=== PATIENT | male | born 1995 | race Caucasian/White ===

== ENCOUNTER 2017-06-28 08:50 | Emergency (ER) | payer SELFPAY ==
[~2017-06-28] VITALS: Ht 175.3 cm; Wt 81.6 kg
[~2017-06-28 08:50] MED LIST: FAMO20TA5 PO; FLUT16SP22 IH; NAPR-243 PO; PRD20T PO; SMTR50T PO; TOPI100T2 PO; TPR25T PO
--- OUTSIDE RECORDS SUMMARY | 2017-06-28 08:58 | XMS REPORT | Continuity of Care Document ---
Author Author [facility] Organization [facility] Address Unknown Phone Unavailable Allergies Active Description Code Type Severity Reaction Onset Reported/Identified Relationship to Patient Clinical Status Yes cefaclor [id number] Drug Allergy Mild N/A 02/28/2014 Yes cefprozil [id number] Drug Allergy Mild N/A 02/28/2014 Medications Problems Procedures Results Encounters ACCT No. Visit Date/Time Discharge Status Pt. Type Provider Facility Loc./Unit Complaint [id number] 04/09/2015 16:02:00 2014 23:59:59 CLS Outpatient ERWIN MADSEN APRN [facility] QUICK [id number] 02/28/2014 14:43:00 2013 15:59:00 DIS Emergency
[2017-06-28] MEDS ORDERED: diphenhydrAMINE 50 MG/ML INJ (BENADRYL) IM ONE (09:45)
[2017-06-28] MEDS ORDERED: methylPREDNISolone 125 MG (Solu-MEDROL) VIAL IVP ONE (09:45)
[2017-06-28] MEDS ORDERED: FAMOTIDINE 20MG/2ML IV (PEPCID) IVP ONE (09:45)
--- NOTE | 2017-06-28 10:09 | ED Integumentary General ---
General Chief Complaint: Allergic Reaction Stated Complaint: POSS POISON AUGUSTINA/EYE SWOLLEN SHUT Nursing Triage Note: ARRIVED VIA AMB TO ROOM 05. COMPLAINS OF POSSIBLE POSION [place] ON HIS FACE AND ARMS. LEFT EYE SWOLLEN SHUT. Source: patient, family Exam Limitations: no limitations History of Present Illness Time seen by provider: 10:04 Initial Comments This 21-year-old white male presents with poison augustina over his face and upper extremities and been present progressively last several days. The patient has had no associated fever, chills, nausea, vomiting, cough, shortness of breath, palpitations, or other remarkable complaint. Patient had similar episodes due to contact dermatitis the past. Patient is under the care of Dr. Teagan Rivers. Allergies and Home Medications Allergies Coded Allergies: Cefaclor (Unverified Allergy, Mild, 02/28/14) Cefprozil (Unverified Allergy, Mild, 02/28/14) Home Medications No Active Prescriptions or Reported Meds Constitutional: No chills, No fever EENTM: No dental problems Respiratory: No short of breath Cardiovascular: No palpitations Gastrointestinal: No abdominal pain, No nausea Genitourinary: no symptoms reported Musculoskeletal: No back pain Skin: rash (patient has a coalescing vesicular erythematous rash of a contact dermatitis primarily over the face and to a lesser extent over his upper extremities.) Psychiatric/Neurological: No Symptoms Reported Endocrine: No Symptoms Reported Hematologic/Lymphatic: No Symptoms Reported Past Dkwelnw-Hkvxqb-Miornx Hx Patient Social History Recent Foreign Travel: No Contact w/Someone Who Travel: No Recent Infectious Disease Expo: No Surgeries History of Surgeries: Yes (TUBES IN EARS) Surgeries: Tonsillectomy Respiratory History of Respiratory Disorde: No Cardiovascular History of Cardiac Disorders: No Neurological History of Neurological Disord: Yes Neurological Disorders: Headaches /Migraines Reproductive System Hx Reproductive Disorders: No Genitourinary History of Genitourinary Disor: No Gastrointestinal History of Gastrointestinal Di: No Musculoskeletal History of Musculoskeletal Dis: No Endocrine History of Endocrine Disorders: No HEENT History of HEENT Disorders: No Cancer History of Cancer: No Did You Recieve Any Treatments: No Psychosocial History of Psychiatric Problem: No Integumentary History of Skin or Integumenta: No Blood Transfusions History of Blood Disorders: No Reviewed Nursing Assessment Reviewed/Agree w Nursing PMH: Yes Physical Exam Vital Signs Vital Sign - Last 12Hours 06/28/17 09:30 Temp 98.0 Pulse 57 Resp 16 B/P (MAP) 122/93 Pulse Ox 98 Capillary Refill : Less Than 3 Seconds General Appearance: mild distress HEENT: other (patient has poison augustina over his face.) Neck: normal inspection Cardiovascular: regular rate, rhythm Respiratory: lungs clear Gastrointestinal: normal bowel sounds Extremities: normal range of motion Neurologic/Psychiatric: no motor/sensory deficits, alert, oriented x 3 Skin: other (poison augustina over the face and upper extremities.) Skin Problem Location: face, upper extremities Skin Problem Character: erythema, vesicular Progress/Results/Core Measures Results/Orders My Orders Orders - AJNET MULLEN MD Methylprednisolone Sod Succ (Solu-Medrol (06/28/17 09:45) Diphenhydramine Injection (Benadryl Inje (06/28/17 09:45) Famotidine Injection (Pepcid Injection) (06/28/17 09:45) Medications Given in ED Current Medications Medications Dose Ordered Sig/Pat Route Start Time Stop Time Status Last Admin Dose Admin Diphenhydramine HCl 50 mg ONCE ONCE IM 06/28/17 09:45 06/28/17 09:46 DC 06/28/17 09:50 50 MG Famotidine 20 mg ONCE ONCE IVP 06/28/17 09:45 06/28/17 09:46 DC 06/28/17 09:49 20 MG Methylprednisolone Sodium Succinate 125 mg ONCE ONCE IVP 06/28/17 09:45 06/28/17 09:46 DC 06/28/17 09:49 125 MG Vital Signs/I&O Vital Sign - Last 12Hours 06/28/17 09:30 Temp 98.0 Pulse 57 Resp 16 B/P (MAP) 122/93 Pulse Ox 98 Blood Pressure Mean: 103 Progress Note : Time: 10:08 Progress Note Patient was treated with 125 mg of Solu-Medrol, 20 mg of Pepcid, and 50 mg of Benadryl IV. A discussion of the patient's diagnosis and treatment plan was undertaken with patient's mother and patient. Departure Impression Impression: Primary Impression: Poison augustina Disposition: 01 HOME, SELF-CARE Condition: Improved Departure-Patient Inst. Decision time for Depature: 10:09 Referrals: TEAGAN SCHMIDT MD (PCP/Family) Primary Care Physician Patient Instructions: Poison [place]ina Add. Discharge Instructions: Prednisone, Pepcid, Benadryl, triamcinolone as prescribed. Come back for any problems or questions. Follow-up with Dr. Schmidt on Saturday if not improved. All discharge instructions reviewed with patient and/or family. Voiced understanding. Scripts No Active Prescriptions or Reported Meds JANET MULLEN MD Jun 28, 2017 10:09
[2017-06-28 10:37] VITALS: BP 132/98
== END 2017-06-28 10:37 | disposition home or self-care (01) ==
LOC: EDUNIT# 08:50 → ER 08:54
DX: L23.7 Allergic contact dermatitis due to plants, except food (principal); G43.909 Migraine, unspecified, not intractable, without status migrainosus; Z90.89 Acquired absence of other organs; Z96.22 Myringotomy tube(s) status
CPT/HCPCS: 96372; 96374; 96375

== ENCOUNTER 2019-04-29 20:31 | Emergency (ER) | payer SELFPAY ==
[~2019-04-29] VITALS: Ht 182.9 cm; Wt 108.9 kg
[2019-04-29] MEDS ORDERED: MOME15CR17 TP (20:54)
[2019-04-29] MEDS ORDERED: PRED5TAB PO (20:54)
--- NOTE | 2019-04-29 20:54 | ED Integumentary General ---
General Chief Complaint: Skin/Wound Problems Stated Complaint: RASH Nursing Triage Note: poison duglas Source: patient History of Present Illness Date Seen by Provider: Apr 29, 2019 Time Seen by Provider: 20:40 Initial Comments PT ARRIVES VIA POV FROM HOME C/O "POISON [place]" SINCE YESTERDAY HAS BEEN WORKING OUTSIDE ALOT IN [place], [place] AND KNOWS HE WAS IN POISON [place] HAS HAD THIS A MULTITUDE OF TIMES AND THIS IS NO DIFFERENT HAS NOT TAKEN ANY MEDICATION OR APPLIED ANY CREAMS, ETC. TO AREAS HAS SOME ON HANDS, RIGHT UPPER ARM, A LITTLE ON LEGS, BUT IS MOST CONCENTRATED IN GENITAL AREA IS VERY ITCHY, BUT NO DRAINING/WEEPING ANYWHERE PCP: DR. SCHMIDT Allergies and Home Medications Allergies Coded Allergies: Cefaclor (Unverified Allergy, Mild, 02/28/14) Cefprozil (Unverified Allergy, Mild, 02/28/14) Home Medications No Active Prescriptions or Reported Meds Patient Home Medication List Home Medication List Reviewed: Yes Review of Systems Review of Systems Constitutional: no symptoms reported EENTM: no symptoms reported Respiratory: no symptoms reported Cardiovascular: no symptoms reported Genitourinary: see HPI Musculoskeletal: no symptoms reported Skin: see HPI Psychiatric/Neurological: No Symptoms Reported Endocrine: No Symptoms Reported Hematologic/Lymphatic: No Symptoms Reported Past Ixuyflr-Zcysku-Bjfzpe Hx Patient Social History Alcohol Use: Denies Use Recreational Drug Use: No Smoking Status: Current Someday Smoker Type Used: Cigarettes, Electronic/Vapor 2nd Hand Smoke Exposure: Yes Recent Foreign Travel: No Contact w/Someone Who Travel: No Recent Infectious Disease Expo: No Recent Hopitalizations: No Immunizations Up To Date Tetanus Booster (TDap): Unknown Seasonal Allergies Seasonal Allergies: No Past Medical History Surgeries: Yes (TUBES IN EARS) Ear Surgery, Tonsillectomy Respiratory: No Cardiac: No Neurological: Yes Headaches /Migraines Reproductive Disorders: No Genitourinary: No Gastrointestinal: No Musculoskeletal: No Endocrine: No HEENT: Yes (BMT'S, TONSILLECTOMY) Chronic Ear Infection, Tonsilitis Cancer: No Did You Recieve Any Treatments: No Psychosocial: No Integumentary: Yes (FREQUENT POISON DUGLAS) Blood Disorders: No Physical Exam Vital Signs Vital Signs - First Documented 04/29/19 20:38 Temp 98.8 Pulse 62 Resp 18 B/P (MAP) 140/83 (102) Pulse Ox 98 O2 Delivery Room Air Capillary Refill : Less Than 3 Seconds General Appearance: WD/WN, no apparent distress Extremities: no pedal edema, normal capillary refill Neurologic/Psychiatric: plastic sewer II-XII nml as tested, alert, normal mood/affect, oriented x 3 Skin: normal color, warm/dry, rash (PATCHY MACULOPAPULAR RASH TO HANDS, LEGS, RIGHT UPPER ARM, AND GENITAL AREA. ) Progress/Results/Core Measures Results/Orders My Orders Orders - VIRY OSUNA DO Methylprednisolone Sod Succ (Solu-Medrol (04/29/19 21:00) Diphenhydramine Injection (Benadryl Inje (04/29/19 21:00) Vital Signs/I&O 04/29/19 20:38 Temp 98.8 Pulse 62 Resp 18 B/P (MAP) 140/83 (102) Pulse Ox 98 O2 Delivery Room Air Blood Pressure Mean: 102 Departure Impression Primary Impression: Contact dermatitis due to poison duglas Disposition: HOME, SELF-CARE Condition: Stable Departure-Patient Inst. Referrals: ZHANE SCHMIDT MD (PCP/Family) Primary Care Physician Patient Instructions: Contact Dermatitis (DC), Poison [place], Poison [place], Poison [place] (DC) Add. Discharge Instructions: TAKE CLARITIN OR ZYRTEC IN THE MORNING AND BENADRYL IN THE EVENING NEEDED FOR ITCHING LOTS OF FLUIDS FOLLOW UP WITH YOUR DR IN 3-4 DAYS IF NO BETTER All discharge instructions reviewed with patient and/or family. Voiced understanding. Scripts Mometasone Furoate (Elocon) 15 Gm Cream..g. 0 TP TID, #1 TUBE Prov: VIRY OSUNA DO 04/29/19 Prednisone (Prednisone) 5 Mg Tablet 5 MG PO UD, #78 TAB 12 PILLS DAY 1, THEN DECREASE BY 1 PILL A DAY UNTIL GONE Prov: VIRY OSUNA DO 04/29/19 VIRY OSUNA DO Apr 29, 2019 20:54
[2019-04-29] MEDS ORDERED: diphenhydrAMINE 50 MG/ML INJ (BENADRYL) IM ONE (21:00)
[2019-04-29] MEDS ORDERED: methylPREDNISolone 125 MG (Solu-MEDROL) VIAL IM ONE (21:00)
[2019-04-29 21:02] VITALS: BP 140/83
== END 2019-04-29 21:00 | disposition home or self-care (01) ==
LOC: EDUNIT# 20:31 → ER 20:32
DX: L23.7 Allergic contact dermatitis due to plants, except food (principal); G43.909 Migraine, unspecified, not intractable, without status migrainosus; F17.210 Nicotine dependence, cigarettes, uncomplicated; F17.290 Nicotine dependence, other tobacco product, uncomplicated; Z88.1 Allergy status to other antibiotic agents; Z90.89 Acquired absence of other organs
CPT/HCPCS: 96372; 99284